=== PATIENT | female | born 1955 | race Caucasian/White ===

== ENCOUNTER → 2020-02-04 | Day surgery (SDC) | payer OTHER ==
[~2020-02-04] MED LIST: IV RINGERS,LACTATED 1000ML 1,000 ML IV ONE; LIDOCAINE 2% PF 5 ML VIAL. ONE; PROPOFOL 10 MG/ML (20ML) VIAL. IV ONE; ePHEDrine PF IN SALINE 50 MG/10 ML SYRINGE. IV ONE
[2020-02-04 08:39] VITALS: BP 101/61
--- NOTE | 2020-02-08 09:07 | PATHOLOGY ---
[facility] Accession Number: [id number] . 01 Material submitted: . colon - RANDOM COLON BIOPSY . 01 Clinical history: . DIARRHEA . 02 Diagnosis: Large bowel "random", endoscopic biopsy: - Large bowel mucosa with features of lymphocytic colitis. - Negative for crypt architectural distortion, active inflammation, granulomatous inflammation, dysplasia, and malignancy. (MLK/db; 02/07/2020) [facility] 02/08/2020 0810 Local . 02 Electronically signed: . Elina Valdez MD, Pathologist NPI- [id number] . 01 Gross description: . Received in formalin labeled "Td, Shelby, random colon BX" are multiple tellez-brown soft tissue fragments measuring in aggregate 1.8 x 0.8 x 0.1 cm. The specimen is submitted entirely in A1. ([place]; 02/05/2020) [facility] 02/05/2020 1132 Local . 02 Pathologist provided ICD-10: R19.7 . 02 CPT . 791359 Specimen Comment: A courtesy copy of this report has been sent to [phone], [phone] Specimen Comment: [id number] Specimen Comment: Report sent to DR ENGLE Performed at: 01 [facility] [address] [facility] [address], [place] [id number] MD Naseem Rock MD Phone: [phone] Performed at: 02 [facility] [address] [id number] MD Jem Esquivel MD Phone: [phone]
== END ==
LOC: ENDOS 06:39
PROVIDERS: ATTEND Internal Medicine Gastroenterology
DX: R19.7 Diarrhea, unspecified (principal); K64.0 First degree hemorrhoids; Z87.891 Personal history of nicotine dependence; Z79.899 Other long term (current) drug therapy
CPT/HCPCS: 45380; 87426; C9803; J2704; U0003; 88305